=== PATIENT | male | born 1950 | race Two or more races ===

== ENCOUNTER 2017-02-09 10:10 | Emergency (ER) | payer OTHER, MEDICAID ==
[~2017-02-09] VITALS: Ht 182.9 cm; Wt 80.7 kg
[2017-02-09 10:20] VITALS: BP 145/109
== END 2017-02-09 11:23 | disposition home or self-care (01) ==
LOC: ER 10:10
DX: L03.031 Cellulitis of right toe (principal); E11.9 Type 2 diabetes mellitus without complications; I10 Essential (primary) hypertension
CPT/HCPCS: 10060

== ENCOUNTER 2018-04-23 02:29 | Inpatient (IN) | payer MEDICAID, OTHER ==
[~2018-04-23] VITALS: Ht 182.9 cm; Wt 80.2 kg
[2018-04-23] MEDS ORDERED: cloNIDine HCL 0.1 MG TAB ONE (03:34)
[2018-04-23] MEDS ORDERED: cloNIDine HCL 0.1 MG TAB PO ONE (03:45)
[2018-04-23 03:48] LABS: Basophils # (auto) 0 uL; Basophils % (auto) 0.5 % (0.0-2.0); Eosinophils # (auto) 0 uL; Eosinophils % (auto) 0.2 % (0.0-7.0); Hematocrit 41.1 % (41.0-53.0); Lymphocytes # (auto) 1.6 uL; Lymphocytes % (auto) 17.1 % (10.0-50.0); Mean Corpuscular Hemoglobin 31.9 pg (28.0-32.0); Mean Corpuscular Hgb Conc. 33.9 g/dL (32.0-36.0); Mean Corpuscular Volume 93.9 fL (80.0-100.0); Monocytes # (auto) 0.4 uL; Neutrophils # (auto) 7.1 uL; Neutrophils % (auto) 78.2 % (37.0-80.0); Nucleated Red Blood Cells % 0.3 %; Platelet Count (auto) 147 10^3/uL (140-450); Red Blood Cells 4.38 10^6/uL (4.5-5.90); Red Cell Distribution Width 13.8 % (11.8-14.3); White Blood Cell 9.1 10^3/uL (4.4-10.8)
[2018-04-23 04:10] LABS: Albumin 3.3 g/dL (3.4-5.0); Calcium 8.2 mg/dL (8.5-10.1)
[2018-04-23 04:16] LABS: Bilirubin, Total 0.6 mg/dL (0.2-1.0); Total Protein 7.5 g/dL (6.4-8.2)
[2018-04-23] MEDS ORDERED: FUROSEMIDE 40 MG/4 ML VIAL IV ONE (06:00)
[2018-04-23] MEDS ORDERED: NITROGLYCERIN 0.4 MG SL TAB SL PRN (06:15)
[2018-04-23] MEDS ORDERED: ONDANSETRON HCL 4 MG/2 ML VIAL IV PRN (06:15)
[2018-04-23] MEDS ORDERED: hydrALAZINE HCL 20 MG/ML VL IV ONE (06:15)
[2018-04-23] MEDS ORDERED: MORPHINE SULFATE 4 MG/ML SYR/VIAL IV PRN (06:15)
[2018-04-23] MEDS ORDERED: HYDROcodone-ACET 5/325MG TAB PO PRN (06:15)
[2018-04-23] MEDS ORDERED: ACETAMINOPHEN 325 MG TAB PO PRN (06:15)
[2018-04-23] MEDS ORDERED: cloNIDine HCL 0.1 MG TAB PO PRN (06:15)
[2018-04-23] MEDS ORDERED: IOHEXOL 350 MG/ML 100ML IJ ONE (06:59)
[2018-04-23] MEDS ORDERED: ENOXAPARIN SOD 40 MG/0.4 ML SYRINGE SC SCH (10:00)
[2018-04-23] MEDS ORDERED: LEVOFLOXACIN 500MG 100 ML IV SCH (10:00)
[2018-04-23] MEDS ORDERED: FUROSEMIDE 40 MG TAB PO SCH (10:00)
[2018-04-23] MEDS: ASPirin 81 mg TAB PO SCH (11:57)
[2018-04-23] MEDS: FAMOTIDINE 20 MG TAB PO SCH ×2 (11:57→23:20)
[2018-04-23 13:00] VITALS: BP 176/110
[2018-04-23] MEDS ORDERED: METOPROLOL TARTRATE 25 MG TAB PO ONE (13:00)
[2018-04-23] MEDS ORDERED: DEXTROSE (50%) 50ML SYRG IV PRN (13:00)
[2018-04-23] MEDS ORDERED: NIFEdipine ER 30 MG TAB PO ONE (14:45)
[2018-04-23] MEDS ORDERED: OPTISON 3ml Vial for INJ IV ONE (15:22)
[2018-04-23 16:48] LABS: Alcohol, Urine < 3.0 mg/dL (0-5); Amphetamine Screen, Urine NEGATIVE (NEGATIVE); Barbiturate Scree,Urine NEGATIVE (NEGATIVE); Benzodiazephine Screen, Urine NEGATIVE (NEGATIVE); Cannabinoid Screen, Urine POSITIVE (NEGATIVE); Cocaine Screen, Urine NEGATIVE (NEGATIVE); Opiate Scree,Urine NEGATIVE (NEGATIVE); Phencyclidine Screen, Urine NEGATIVE (NEGATIVE)
[2018-04-23 17:00] VITALS: BP 197/122
[2018-04-23] MEDS: ACCU-CHEK COMFORT CURVE STRIP VI SCH ×2 (17:25→23:23)
[2018-04-23] MEDS: InsuLIN REG 1unit/0.01ml Soln (100units/ml) SC SCH ×2 (17:26→23:22)
[2018-04-23] MEDS: FUROSEMIDE 40 MG/4 ML VIAL IV SCH (17:26)
[2018-04-23 21:56] VITALS: BP 150/96
[2018-04-23] MEDS: ENOXAPARIN SOD 80 MG/0.8ML SYRINGE SC SCH (22:00)
[2018-04-23] MEDS: ENALAPRIL MALEATE 2.5 MG TAB PO SCH (23:21)
[2018-04-23] MEDS: METOPROLOL TARTRATE 25 MG TAB PO SCH (23:22)
[2018-04-23] MEDS: POTASSIUM CHL 10 Meq TABLET PO SCH (23:22)
[2018-04-23] MEDS: ACETYLCYSTEINE ORAL for CIN 20%(200MG/ML) 4ML PO SCH (23:23)
[2018-04-23] MEDS: TEMAZEPAM 15 MG CAP PO PRN (23:23)
[2018-04-24 04:56] VITALS: BP 135/76
[2018-04-24] MEDS: FUROSEMIDE 40 MG/4 ML VIAL IV SCH (06:05)
[2018-04-24] MEDS: ACCU-CHEK COMFORT CURVE STRIP VI SCH ×4 (06:05→22:22)
[2018-04-24 06:22] LABS: Basophils # (auto) 0 uL; Basophils % (auto) 0.2 % (0.0-2.0); Eosinophils # (auto) 0 uL; Eosinophils % (auto) 0.3 % (0.0-7.0); Hemoglobin 14.4 g/dL (13.5-17.5); Lymphocytes # (auto) 1.6 uL; Lymphocytes % (auto) 18.3 % (10.0-50.0); Mean Corpuscular Hgb Conc. 34.2 g/dL (32.0-36.0); Mean Corpuscular Volume 93.5 fL (80.0-100.0); Monocytes # (auto) 0.5 uL; Monocytes % (auto) 6.2 % (0.0-12.0); Neutrophils # (auto) 6.5 uL; Platelet Count (auto) 153 10^3/uL (140-450); Red Blood Cells 4.49 10^6/uL (4.5-5.90); Red Cell Distribution Width 13.3 % (11.8-14.3); White Blood Cell 8.7 10^3/uL (4.4-10.8)
[2018-04-24] MEDS: InsuLIN REG 1unit/0.01ml Soln (100units/ml) SC SCH ×4 (06:26→22:21)
[2018-04-24 06:34] LABS: BUN/Creatinine Ratio 16.7; Calcium 8.2 mg/dL (8.5-10.1); Potassium 3.7 mmol/L (3.5-5.1)
[2018-04-24 06:35] LABS: INR 0.99 (0.9-1.15); Partial Thromboplastin Time 26.5 sec (23.78-33.04); Prothrombin Time 10.6 sec (9.27-12.13)
[2018-04-24 06:36] LABS: Bilirubin, Total 0.9 mg/dL (0.2-1.0); Total Protein 7.1 g/dL (6.4-8.2)
[2018-04-24 06:48] LABS: Cholesterol 177 mg/dL (< 200); HDL Cholesterol 28 mg/dL (40-59); LDL Cholesterol 127 mg/dL (< 100); Triglycerides 183 mg/dL (< 150)
[2018-04-24 07:02] LABS: Urine Bacteria NONE SEEN /hpf (None Seen); Urine Blood 1+ /uL (Negative); Urine Hyaline Cast FEW /lpf (0 - 2); Urine Specific Gravity 1.014 (1.001-1.035); Urine WBC 1 /hpf (0 - 3)
[2018-04-24] MEDS ORDERED: IODIXANOL 320MG/ML 100ML BTL IV ONE (07:57)
[2018-04-24] MEDS ORDERED: LIDOCAINE 2%HCL (LOCAL ANESTH.) INJ 20ML MDV ONE (07:59)
[2018-04-24] MEDS ORDERED: ALPRAZolam 0.25 MG TAB PO ONE (09:00)
[2018-04-24] MEDS ORDERED: ANGIOMAX 250 MG VIAL IV ONE (09:11)
[2018-04-24] MEDS ORDERED: fentaNYL CITRATE 100 MCG/2 ML VL ONE (09:11)
[2018-04-24] MEDS ORDERED: MIDAZOLAM HCL 1MG/1ML-2 ML VIAL ONE (09:12)
[2018-04-24] MEDS ORDERED: SODIUM CHL 0.9% 0 ML ONE (09:12)
[2018-04-24] MEDS ORDERED: EPINEPHrine HCL 1 MG/10 ML SYRG ONE (09:12)
[2018-04-24] MEDS ORDERED: ATROPINE SULF 1 MG/10ml SYR ONE (09:12)
[2018-04-24] MEDS: ENOXAPARIN SOD 80 MG/0.8ML SYRINGE SC SCH ×3 (10:00→22:22)
[2018-04-24] MEDS: METOPROLOL TARTRATE 25 MG TAB PO SCH ×2 (11:36→22:20)
[2018-04-24] MEDS: POTASSIUM CHL 10 Meq TABLET PO SCH (11:37)
[2018-04-24] MEDS: NIFEdipine ER 30 MG TAB PO SCH (11:37)
[2018-04-24] MEDS: FAMOTIDINE 20 MG TAB PO SCH ×2 (11:38→22:19)
[2018-04-24] MEDS: ENALAPRIL MALEATE 2.5 MG TAB PO SCH ×2 (11:38→22:21)
[2018-04-24] MEDS: NITROGLYCERIN 0.4MG/HR TOPICAL PATCH TD SCH (11:40)
[2018-04-24] MEDS: ASPirin 81 mg TAB PO SCH (11:40)
[2018-04-24 13:00] VITALS: BP 151/78
[2018-04-24] MEDS: ACETYLCYSTEINE ORAL for CIN 20%(200MG/ML) 4ML PO SCH ×2 (13:38→22:19)
[2018-04-24] MEDS ORDERED: ACCU-CHEK COMFORT CURVE STRIP VI ONE (14:30)
[2018-04-24] MEDS ORDERED: cefTRIAXone 1GM/50ML D5W 50 ML IV ONE (14:30)
[2018-04-24 14:46] LABS: Albumin 3.1 g/dL (3.4-5.0); Calcium 8.4 mg/dL (8.5-10.1); Potassium 3.6 mmol/L (3.5-5.1)
[2018-04-24 14:49] LABS: Bilirubin, Total 0.7 mg/dL (0.2-1.0); Total Protein 7.3 g/dL (6.4-8.2)
[2018-04-24 14:50] LABS: BUN/Creatinine Ratio 17.6
[2018-04-24 17:13] VITALS: BP 147/71
[2018-04-24 22:00] VITALS: BP 115/68
[2018-04-24] MEDS: IPRATROPIUM BROM 0.5 MG/2.5ML INH SOL NEB SCH (22:00)
[2018-04-24 22:07] VITALS: BP 147/71
[2018-04-24] MEDS: ATORVASTATIN 20 MG TAB PO SCH (22:19)
[2018-04-24] MEDS: TEMAZEPAM 15 MG CAP PO PRN (22:22)
[2018-04-25 05:00] VITALS: BP 129/57
[2018-04-25 05:44] LABS: Basophils # (auto) 0 uL; Basophils % (auto) 0.4 % (0.0-2.0); Eosinophils # (auto) 0.1 uL; Eosinophils % (auto) 0.7 % (0.0-7.0); Hematocrit 43.4 % (41.0-53.0); Hemoglobin 14.9 g/dL (13.5-17.5); Lymphocytes # (auto) 2.4 uL; Mean Corpuscular Hgb Conc. 34.3 g/dL (32.0-36.0); Mean Corpuscular Volume 93.2 fL (80.0-100.0); Monocytes # (auto) 0.6 uL; Monocytes % (auto) 5.9 % (0.0-12.0); Neutrophils # (auto) 6.6 uL; Nucleated Red Blood Cells % 0.1 %; Platelet Count (auto) 190 10^3/uL (140-450); Red Blood Cells 4.65 10^6/uL (4.5-5.90); Red Cell Distribution Width 13.7 % (11.8-14.3); White Blood Cell 9.7 10^3/uL (4.4-10.8)
[2018-04-25] MEDS: IPRATROPIUM BROM 0.5 MG/2.5ML INH SOL NEB SCH ×3 (05:46→22:00)
[2018-04-25 05:56] LABS: BUN/Creatinine Ratio 18.9; Potassium 3.7 mmol/L (3.5-5.1)
[2018-04-25 05:57] LABS: Calcium 8.6 mg/dL (8.5-10.1)
[2018-04-25 06:00] VITALS: BP_SYST 134; BP_SYST 139; BP_DIAS 71; BP_DIAS 79
[2018-04-25] MEDS ORDERED: CHLORHEXIDINE 0.12% ORAL rinse 473ML MT ONE (06:00)
[2018-04-25] MEDS: InsuLIN REG 1unit/0.01ml Soln (100units/ml) SC SCH ×4 (06:06→21:48)
[2018-04-25] MEDS: ACCU-CHEK COMFORT CURVE STRIP VI SCH ×4 (06:07→21:48)
[2018-04-25 07:20] LABS: INR 0.99 (0.9-1.15); Partial Thromboplastin Time 30.9 sec (23.78-33.04); Prothrombin Time 10.6 sec (9.27-12.13)
[2018-04-25] MEDS ORDERED: INFLUENZA QUAD 2018-2019 0.5 ML SYRG IM ONE (09:00)
[2018-04-25] MEDS ORDERED: ASPirin-EC 81 mg tab PO SCH (10:00)
[2018-04-25] MEDS: CHLORHEXIDINE 4% TOPICAL soln 237ML TOP SCH ×2 (10:00→21:48)
[2018-04-25] MEDS: ACETYLCYSTEINE ORAL for CIN 20%(200MG/ML) 4ML PO SCH (10:50)
[2018-04-25] MEDS: FAMOTIDINE 20 MG TAB PO SCH ×2 (10:50→21:48)
[2018-04-25] MEDS: METOPROLOL TARTRATE 25 MG TAB PO SCH ×2 (10:50→21:47)
[2018-04-25] MEDS: ENALAPRIL MALEATE 2.5 MG TAB PO SCH ×2 (10:51→21:47)
[2018-04-25] MEDS: NIFEdipine ER 30 MG TAB PO SCH (10:51)
[2018-04-25] MEDS: NITROGLYCERIN 0.4MG/HR TOPICAL PATCH TD SCH (10:52)
[2018-04-25] MEDS: ENOXAPARIN SOD 80 MG/0.8ML SYRINGE SC SCH ×2 (10:52→21:48)
[2018-04-25 13:00] VITALS: BP 143/77
[2018-04-25 18:15] VITALS: BP 164/61
[2018-04-25] MEDS: ATORVASTATIN 20 MG TAB PO SCH (21:47)
[2018-04-25] MEDS: TEMAZEPAM 15 MG CAP PO PRN (21:51)
[2018-04-25 22:00] VITALS: BP 141/75
[2018-04-25] MEDS ORDERED: methylPREDNISolone SOD SUCC 40 MG/ML VL IV SCH (22:00)
[2018-04-26] MEDS ORDERED: TRANEXAMIC ACID 1,000 MG in SODIUM CHL 0.9% 100 ML IV ONE (08:00)
[2018-04-26] MEDS ORDERED: HEPARIN 30000 UNITS in SODIUM CHLORIDE 0.9% 1000 ML IV ONE (08:00)
[2018-04-26] MEDS ORDERED: TRANEXAMIC ACID 1,000 mg/10ml INJ VIAL IV ONE (08:00)
[2018-04-26] MEDS ORDERED: InsuLIN R (HUMAN) 100 UNITS in SODIUM CHL 0.9% 99 ML IV ONE (08:00)
[2018-04-26] MEDS ORDERED: PHENYLEPHRINE INJ 20 MG in SODIUM CHL 0.9% 250 ML IV ONE (08:00)
[2018-04-26] MEDS ORDERED: EPINEPHrine HCL 4 MG in D5W 5% 250 ML IV ONE (08:00)
[2018-04-26] MEDS ORDERED: NOREPINEPHRINE 8 MG/250ML KIT 250 ML IV ONE (08:00)
[2018-04-26] MEDS ORDERED: ASCORBIC ACID 500 MG TAB PO ONE (22:00)
[2018-04-27] MEDS ORDERED: VANCOMYCIN 1GM/250ML 250 ML IV ONE (07:00)
[2018-04-27 10:50] LABS: Hepatitis B Surface Antibody Negative
[2018-04-27 11:25] LABS: Hepatitis A Total Antibody Negative
[2018-04-27 12:23] LABS: Hepatitis B Surface Antigen Negative (Negative)
[2018-04-27 13:59] LABS: Hepatitis B Core Total AB Positive
[2018-04-27 14:00] LABS: Hepatitis C Antibody Positive (Negative)
[2018-05-02] MEDS ORDERED: BEN10T PO (07:56)
[2018-05-02] MEDS ORDERED: CLOP75TA28 PO (07:58)
[2018-05-02] MEDS ORDERED: ATOR1TAB PO (07:58)
[2018-05-02] MEDS ORDERED: CARV6.2551 PO (07:58)
== END 2018-04-26 03:59 | disposition left against medical advice (07) | DRG 280 ==
LOC: ER 02:34 → TELE 06:24 → TELE-WESTW 10:15
PROVIDERS: ADMIT Nurse Practitioner; ATTEND Internal Medicine
PROC: 4A023N7 Measurement of Cardiac Sampling and Pressure, Left Heart, Percutaneous Approach (ICD-10-PCS; principal; 2018-04-24)
PROC: B2111ZZ Fluoroscopy of Multiple Coronary Arteries using Low Osmolar Contrast (ICD-10-PCS; 2018-04-24)
PROC: B2151ZZ Fluoroscopy of Left Heart using Low Osmolar Contrast (ICD-10-PCS; 2018-04-24)
PROC: B41D1ZZ Fluoroscopy of Aorta and Bilateral Lower Extremity Arteries using Low Osmolar Contrast (ICD-10-PCS; 2018-04-24)
DX: I21.4 Non-ST elevation (NSTEMI) myocardial infarction (principal); J96.01 Acute respiratory failure with hypoxia; I50.43 Acute on chronic combined systolic (congestive) and diastolic (congestive) heart failure; J44.1 Chronic obstructive pulmonary disease with (acute) exacerbation; I13.0 Hypertensive heart and chronic kidney disease with heart failure and stage 1 through stage 4 chronic kidney disease, or unspecified chronic kidney disease; E11.22 Type 2 diabetes mellitus with diabetic chronic kidney disease; E11.51 Type 2 diabetes mellitus with diabetic peripheral angiopathy without gangrene; E11.65 Type 2 diabetes mellitus with hyperglycemia; E78.1 Pure hyperglyceridemia; E78.5 Hyperlipidemia, unspecified; F17.200 Nicotine dependence, unspecified, uncomplicated; I08.1 Rheumatic disorders of both mitral and tricuspid valves; I25.10 Atherosclerotic heart disease of native coronary artery without angina pectoris; I70.202 Unspecified atherosclerosis of native arteries of extremities, left leg; N18.3 Chronic kidney disease, stage 3 (moderate); F11.10 Opioid abuse, uncomplicated; I27.20 Pulmonary hypertension, unspecified; I25.5 Ischemic cardiomyopathy; F12.10 Cannabis abuse, uncomplicated; Z95.1 Presence of aortocoronary bypass graft; Z86.19 Personal history of other infectious and parasitic diseases; Z53.21 Procedure and treatment not carried out due to patient leaving prior to being seen by health care provider
CPT/HCPCS: 36415; 36600; 71045; 75710; 76705; 80048; 80053; 80061; 80307; 81001; 82805; 82962; 83036; 83880; 84484; 85025; 85379; 85576; 85610; 85730; 86703; 86704; 86706; 86708; 86803; 86850; 86900; 86901; 87340; 93005; 93306; 93458; 93886; 93970; 94010; 94640; 96365; 96375; 99152; A6257; G0378; J1815; J1956; J2250; Q9956; Q9967